=== PATIENT | male | born 1960 | race Caucasian/White ===

== ENCOUNTER 2017-10-01 16:40 | Emergency (ER) | payer BC ==
[~2017-10-01] VITALS: Ht 188 cm; Wt 103.6 kg
[2017-10-01 16:50] VITALS: BP 128/74; PULSE 69; RESP 18; TEMP 98.4; O2SAT 96
--- NOTE | 2017-10-01 17:06 | PD ---
HPI . Vomiting and diarrhea Chief Complaint: GI Complaint Time Seen by Provider: 16:55 Travel History International Travel<30 days: No Contact w/Intl Traveler<30days: No Traveled to known affect area: No History of Present Illness HPI This patient presents with a 2 day history of vomiting and diarrhea. He estimates approximately 10-15 episodes of each per day. He is concerned about dehydration. Associated symptoms have included fevers and chills with his temperature running about 101. He denies any urinary tract symptoms. His is not ill. He is unaware of any modifying factors. PFSH Social History Tobacco Use: No Allergies-Medications (Allergen,Severity, Reaction): Coded Allergies: No Known Allergies (Unverified , 10/01/17) Reported Meds & Prescriptions Reported Meds & Active Scripts Active Reported Atorvastatin (Atorvastatin Calcium) 20 Mg Tab 20 Mg PO HS Aspirin 81 Mg Chew 81 Mg CHEW DAILY Percocet (Oxycodone-Acetaminophen) 10-325 mg Tab 1 Tab PO Q4H PRN Review of Systems Except as stated in HPI: all other systems reviewed are Neg General / Constitutional: Positive: Fever, Chills HENT: Positive: Lightheadedness Gastrointestinal: Positive: Nausea, Vomiting, Diarrhea Genitourinary: Positive: Decreased Urinary Output, No: Urgency, Frequency, Dysuria Neurologic: Positive: Weakness Physical Exam Narrative Vital Signs Date Time Temp Pulse Resp B/P (MAP) Pulse Ox O2 Delivery O2 Flow Rate FiO2 10/01/17 16:50 98.4 69 18 128/74 (92) 96 GENERAL: Awake and alert. SKIN: warm/dry. Normal color and turgor. HEAD: Normocephalic. Atraumatic. EYES: Pupils equal and round. No scleral icterus. No injection or drainage. ENT: No nasal bleeding or discharge. Mucous membranes dry. NECK: Trachea midline. Full range of motion without pain.. CARDIOVASCULAR: Regular rate and rhythm. Normal heart sounds. RESPIRATORY: No accessory muscle use. Clear to auscultation. Breath sounds equal bilaterally. GASTROINTESTINAL: Abdomen soft. Nontender. Bowel sounds present. Nondistended. MUSCULOSKELETAL: No obvious deformities. NEUROLOGICAL: Awake and alert. No obvious cranial nerve deficits. Motor grossly within normal limits. Normal speech. PSYCHIATRIC: Appropriate mood and affect; insight and judgment normal. Data Data Last Documented VS Vital Signs Date Time Temp Pulse Resp B/P (MAP) Pulse Ox O2 Delivery O2 Flow Rate FiO2 10/01/17 19:15 82 18 147/84 (105) 99 Room Air 10/01/17 16:50 98.4 Orders Orders Sodium Chlor 0.9% 1000 Ml Inj (Ns 1000 M (10/01/17 17:15) Sodium Chlor 0.9% 1000 Ml Inj (Ns 1000 M (10/01/17 17:15) Ondansetron Inj (Zofran Inj) (10/01/17 17:15) Complete Blood Count With Diff (10/01/17 17:02) Basic Metabolic Panel (Bmp) (10/01/17 17:02) Iv Access Insert/Monitor (10/01/17 17:02) Ecg Monitoring (10/01/17 17:02) Oximetry (10/01/17 17:02) Sodium Chloride 0.9% Flush (Ns Flush) (10/01/17 17:15) Dicyclomine Inj (Bentyl Inj) (10/01/17 19:15) Sodium Chlor 0.9% 1000 Ml Inj (Ns 1000 M (10/01/17 19:15) Labs Laboratory Tests Test 10/01/17 18:00 White Blood Count 14.6 TH/MM3 Red Blood Count 5.50 MIL/MM3 Hemoglobin 16.1 GM/DL Hematocrit 48.5 % Mean Corpuscular Volume 88.1 FL Mean Corpuscular Hemoglobin 29.2 PG Mean Corpuscular Hemoglobin Concent 33.2 % Red Cell Distribution Width 12.3 % Platelet Count 144 TH/MM3 Mean Platelet Volume 9.5 FL Neutrophils (%) (Auto) 88.3 % Lymphocytes (%) (Auto) 6.5 % Monocytes (%) (Auto) 4.5 % Eosinophils (%) (Auto) 0.0 % Basophils (%) (Auto) 0.7 % Neutrophils # (Auto) 12.8 TH/MM3 Lymphocytes # (Auto) 1.0 TH/MM3 Monocytes # (Auto) 0.7 TH/MM3 Eosinophils # (Auto) 0.0 TH/MM3 Basophils # (Auto) 0.1 TH/MM3 CBC Comment DIFF FINAL Differential Comment Blood Urea Nitrogen 15 MG/DL Creatinine 0.87 MG/DL Random Glucose 124 MG/DL Calcium Level 8.6 MG/DL Sodium Level 136 MEQ/L Potassium Level 3.3 MEQ/L Chloride Level 102 MEQ/L Carbon Dioxide Level 24.2 MEQ/L Anion Gap 10 MEQ/L Estimat Glomerular Filtration Rate 91 ML/MIN [facility] Medical Decision Making Medical Screen Exam Complete: Yes Emergency Medical Condition: Yes Differential Diagnosis Differential diagnosis includes but is not limited to viral gastritis, food poisoning, pancreatitis, pneumonia, hepatitis, acute coronary syndrome, Narrative Course This patient presents with fever associated with vomiting and diarrhea. He looks mildly dehydrated clinically. I have ordered 2 L of fluid. He will be given Zofran. He has a benign abdominal exam so no radiographic studies have been ordered. I am checking a CBC and BMP. CBC & BMP Diagram 10/01/17 18:00 Calcium Level 8.6 The patient has been here for over 3 hours now and has had no further vomiting or diarrhea. He is stable for discharge to home. He is continuing to complain with some abdominal discomfort. His abdominal exam was benign. Because of his associated fever and elevated white blood count, I will treat him with Bactrim and Flagyl to cover enteric pathogens. Diagnosis Primary Impression: Gastroenteritis Patient Instructions: Gastroenteritis (DC), General Instructions Med/Other Pt SpecificInfo: Prescription(s) given Scripts Dicyclomine (Bentyl) 10 Mg Cap 20 MG PO QID for Bowel Management, #12 CAP 0 Refills Prov: Eva Lucas MD 10/01/17 Ondansetron (Zofran) 4 Mg Tab 4 MG PO Q6HR Y for NAUSEA OR VOMITING, #12 TAB 0 Refills Prov: Eva Lucas MD 10/01/17 Metronidazole (Flagyl) 500 Mg Tab 500 MG PO BID for Infection for 7 Days, #14 TAB 0 Refills Prov: Eva Lucas MD 10/01/17 Sulfamethoxazole-Trimethoprim (Bactrim DS) 800-160 Mg Tab 1 TAB PO BID for Infection, #14 TAB 0 Refills Prov: Eva Lucas MD 10/01/17 Disposition: DISCHARGE HOME Condition: Stable Eva Lucas MD Oct 01, 2017 17:06
[2017-10-01] MEDS ORDERED: ONDANSETRON HCL 4 MG/2 ML VIAL IV PUSH ONE (17:15)
[2017-10-01] MEDS ORDERED: SODIUM CHLOR 0.9% 1000 ML INJ 1,000 ML IV ONE ×3 (17:15→19:15)
[2017-10-01] MEDS ORDERED: SODIUM CHLORIDE 0.9% FLUSH 10 ML FLUSH IVF PRN (17:15)
[2017-10-01 18:00] VITALS: O2SAT 98
[2017-10-01 18:09] LABS: AUTOMATED NEUTROPHIL # 12.8 TH/MM3 (1.8-7.7); BASOPHIL # 0.1 TH/MM3 (0-0.2); BASOPHIL % 0.7 % (0.0-2.0); HEMATOCRIT 48.5 % (39.0-51.0); HEMOGLOBIN 16.1 GM/DL (13.0-17.0); LYMPH % 6.5 % (9.0-44.0); MEAN CELL VOLUME 88.1 FL (80.0-100.0); MEAN CORPUSCULAR HEMOGLOBIN 29.2 PG (27.0-34.0); MEAN CORPUSCULAR HGB CONC 33.2 % (32.0-36.0); MEAN PLATELET VOLUME 9.5 FL (7.0-11.0); MONO % 4.5 % (0.0-8.0); MONOCYTE # 0.7 TH/MM3 (0-0.9); NEUT % 88.3 % (16.0-70.0); PLATELET COUNT 144 TH/MM3 (150-450); RED CELL DISTRIBUTION WIDTH 12.3 % (11.6-17.2); WHITE BLOOD COUNT 14.6 TH/MM3 (4.0-11.0)
[2017-10-01 18:17] LABS: CALCIUM 8.6 MG/DL (8.5-10.1)
[2017-10-01 18:18] LABS: BICARBONATE 24.2 MEQ/L (21.0-32.0)
[2017-10-01 18:21] LABS: CREATININE 0.87 MG/DL (0.60-1.30)
[2017-10-01] MEDS ORDERED: PERC10TA27 PO (18:26)
[2017-10-01] MEDS ORDERED: ASPI-516 CHEW (18:26)
[2017-10-01] MEDS ORDERED: ATOR20TA15 PO (18:26)
[2017-10-01 19:04] VITALS: BP 145/73; PULSE 93; RESP 16; O2SAT 97
[2017-10-01 19:15] VITALS: BP 147/84; PULSE 82; RESP 18; O2SAT 99
[2017-10-01] MEDS ORDERED: DICYCLOMINE HCL 20 MG/2 ML VIAL IM ONE (19:15)
[2017-10-01] MEDS ORDERED: DICY10 PO (20:20)
[2017-10-01] MEDS ORDERED: ZOFR4TAB PO (20:20)
[2017-10-01] MEDS ORDERED: BACT800T5 PO (20:20)
[2017-10-01] MEDS ORDERED: METR-1 PO (20:20)
[2017-10-01] MEDS ORDERED: SULFAMETHOXAZOLE-TRIMETHOPRIM DS 800-160 MG TAB PO ONE (20:30)
[2017-10-01] MEDS ORDERED: metroNIDAZOLE 500 MG TAB PO ONE (20:30)
[2017-10-01 20:45] VITALS: BP 153/76; TEMP 98.7
== END 2017-10-01 20:48 | disposition home or self-care (01) ==
LOC: PHED 16:40
DX: K52.9 Noninfective gastroenteritis and colitis, unspecified (principal)
CPT/HCPCS: 80048; 85025; 96361; 96372; 96374; 99284; J0500; J2405; J7030